=== PATIENT | male | born 1980 | race Caucasian/White ===

== ENCOUNTER 2023-12-31 15:02 | Emergency (ER) | payer MEDICAID, OTHER ==
[~2023-12-31] VITALS: Ht 165.1 cm; Wt 75.0 kg
[~2023-12-31 15:02] MED LIST: OXYC1TAB; PROMETHAZINE; TAMSULOSIN
[2023-12-31 15:08] VITALS: TEMP 98; O2SAT 98
[2023-12-31] MEDS ORDERED: IBUP-2028 MT (15:31)
[2023-12-31 16:13] VITALS: BP 138/86; PULSE 95; RESP 16
[2023-12-31] MEDS: KETOROLAC 15MG/ML VIAL IV ONE (16:29)
== END 2023-12-31 17:28 | disposition home or self-care (01) ==
LOC: ER 15:02
DX: S83.094A Other dislocation of right patella, initial encounter (principal); Z98.890 Other specified postprocedural states; X58.XXXA Exposure to other specified factors, initial encounter; Y93.89 Activity, other specified; Y92.89 Other specified places as the place of occurrence of the external cause; Y99.8 Other external cause status
CPT/HCPCS: 73560; 27560; 96374; 99284; J1885; Z7610; L1830; 99283

== ENCOUNTER 2025-05-22 05:08 | Inpatient (IN) | payer BC, MEDICAID ==
[~2025-05-22] VITALS: Ht 170.2 cm; Wt 70.3 kg
[~2025-05-22 05:08] MED LIST changes: +IBUP-2028 MT
[2025-05-22 05:16] VITALS: O2SAT 100
[2025-05-22] MEDS ORDERED: PANTOPRAZOLE SODIUM 40 MG/VIAL IV ONE (05:30)
[2025-05-22 05:58] LABS: BASOPHILS % 0.6 % (0.0-2.0); EOSINOPHILS % 0.9 % (0.0-5.0); HEMATOCRIT. 48.1 % (42.0-52.0); HEMOGLOBIN. 16.2 g/dL (14.0-18.0); LYMPHOCYTES % 26.6 % (20.0-50.0); MONOCYTES % 9.0 % (2.0-8.0); NEUTROPHILS % 62.9 % (40.0-76.0); RED BLOOD CELL COUNT 5.85 mill/uL (4.7-6.1); RED CELL DISTRIBUTION WIDTH 13.8 % (11.6-14.6)
[2025-05-22 06:12] LABS: CREATININE 1.3 mg/dL (0.6-1.3); UREA NITROGEN BLOOD 14 mg/dL (9-23)
[2025-05-22 06:13] LABS: TROPONIN I HIGH SENSITIVITY 12 ng/L (3.0-53)
[2025-05-22 06:14] LABS: ASPARTATE AMINOTRANSFERASE 22 IU/L (<34); BILIRUBIN DIRECT 0.3 mg/dL (<=3.0); BILIRUBIN TOTAL 1.4 mg/dL (0.1-1.0); PROTEIN TOTAL 8.8 g/dL (6.0-8.3)
[2025-05-22] MEDS: METOCLOPRAMIDE HCL 10MG/2ML VIAL IV ONE (06:21)
[2025-05-22] MEDS: PANTOPRAZOLE SODIUM 40 MG/VIAL IV NR (06:24)
[2025-05-22] MEDS: LACTATED RINGERS 1,000 ML IV SCH (06:24)
[2025-05-22] MEDS ORDERED: METOCLOPRAMIDE HCL 10MG/2ML VIAL IV NR (06:30)
[2025-05-22] MEDS: PANTOPRAZOLE 80 MG in SODIUM CHLORIDE 0.9% 100 ML IV SCH (06:55)
[2025-05-22 07:22] LABS: MEAN PLATELET VOLUME 9.3 fl (7.4-10.4)
[2025-05-22 07:24] LABS: PLATELET 332 x1000/uL (130-400)
[2025-05-22 07:55] LABS: TROPONIN I HIGH SENSITIVITY 6 ng/L (3.0-53)
[2025-05-22] MEDS ORDERED: ACETAMINOPHEN 325MG TABLET PO PRN ×2 (10:45)
[2025-05-22] MEDS ORDERED: ONDANSETRON HCL 4MG/2ML INJ IV PRN (10:45)
[2025-05-22] MEDS: DEXT 5%/0.45% NACL 1000ML 1,000 ML IV SCH (11:00)
[2025-05-22 11:23] VITALS: BP 120/83; PULSE 112; RESP 16; TEMP 36.6404
[2025-05-22 12:00] VITALS: BP 120/83; PULSE 112; RESP 16; TEMP 36.6; O2SAT 99
[2025-05-22 16:00] VITALS: BP 111/81; PULSE 115; RESP 16; TEMP 36.8; O2SAT 100
== END 2025-05-22 19:39 | disposition home or self-care (01) | DRG 253 ==
LOC: ER 05:08 → 5WST 07:50 → EDBEDREQ 07:53 → EDBEDREQTM 07:53 → EDBEDREQSVC 08:03
PROVIDERS: ADMIT Internal Medicine; ATTEND Internal Medicine
DX: K92.0 Hematemesis (principal); E87.6 Hypokalemia; K21.9 Gastro-esophageal reflux disease without esophagitis; Z85.038 Personal history of other malignant neoplasm of large intestine; Z90.49 Acquired absence of other specified parts of digestive tract; Z92.21 Personal history of antineoplastic chemotherapy; Z92.3 Personal history of irradiation
CPT/HCPCS: 36415; 71045; 80048; 80076; 84145; 84484; 85014; 85018; 85025; 86850; 86900; 93005; 99291; J2470; J2765; J7050